=== PATIENT | female | born 1960 | race Caucasian/White ===

== ENCOUNTER 2016-12-08 03:38 | Inpatient (IN) | payer OTHER ==
[~2016-12-08] VITALS: Ht 160 cm; Wt 75.2 kg
[~2016-12-08 03:38] MED LIST: ASCO10007 PO; ASPI-496 PO; CELE200C PO; GLIP10TA3 PO; GLIP5TAB10 PO; LISI40TA PO; METF10002 PO
[2016-12-08] MEDS ORDERED: SODIUM CHLORIDE 0.9% 1,000ML IVBOLUS ONE ×2 (04:30→05:30)
[2016-12-08] MEDS ORDERED: ACETAMINOPHEN 325 MG TABLET PO ONE (04:30)
[2016-12-08] MEDS ORDERED: ACETAMINOPHEN 325 MG TABLET ONE (04:34)
[2016-12-08] MEDS ORDERED: ONDANSETRON 2MG/ML, 2ML ONE (05:20)
[2016-12-08] MEDS ORDERED: MORPHINE SULFATE 4 MG/ML, 1ML ONE (05:20)
[2016-12-08] MEDS ORDERED: MAALOX/HYOSCYAMINE/LIDOCAINE 45 ML BOTTLE ONE (05:20)
[2016-12-08] MEDS ORDERED: FAMOTIDINE 20 MG/2 ML ONE (05:21)
[2016-12-08] MEDS ORDERED: ONDANSETRON 2MG/ML, 2ML IVPush ONE (05:30)
[2016-12-08] MEDS ORDERED: MORPHINE SULFATE 4 MG/ML, 1ML IVPush PRN (05:30)
[2016-12-08] MEDS ORDERED: MAALOX/HYOSCYAMINE/LIDOCAINE 45 ML BOTTLE PO ONE (05:30)
[2016-12-08] MEDS ORDERED: FAMOTIDINE 20 MG/2 ML IVP ONE (05:30)
[2016-12-08 05:39] LABS: ASPARTATE AMINO TRANSFERASE 22 U/L (15-37); BLOOD UREA NITROGEN 23 mg/dL (7-18)
[2016-12-08 05:48] LABS: IS PT STATUS REG ER OR PRE ER? YES
[2016-12-08 06:35] LABS: HCG UR OBC PASS
[2016-12-08] MEDS ORDERED: CEFTRIAXONE PMX 1GM/50ML 50 ML ONE (07:23)
[2016-12-08] MEDS ORDERED: CEFTRIAXONE PMX 1GM/50ML 50 ML IV SCH (07:30)
[2016-12-08] MEDS ORDERED: ONDANSETRON 2MG/ML, 2ML IVPush PRN (09:00)
[2016-12-08] MEDS ORDERED: ONDANSETRON ODT 4 MG PO PRN (09:00)
[2016-12-08] MEDS ORDERED: FAMOTIDINE 20 MG TABLET PO SCH (09:00)
[2016-12-08] MEDS ORDERED: LABETALOL 5MG/ML, 20ML IVPush PRN (09:00)
[2016-12-08] MEDS: SENNA/DOCUSATE TABLET PO SCH ×3 (09:00→20:31)
[2016-12-08] MEDS ORDERED: POLYETHYLENE GLYCOL 17 GM PACKET PO PRN (09:00)
[2016-12-08 09:10] VITALS: BP 105/63
[2016-12-08] MEDS: CEFTRIAXONE PMX 1GM/50ML 50 ML IV SCH (10:34)
[2016-12-08] MEDS: ENOXAPARIN 40 MG/0.4 ML SQ SCH (10:34)
[2016-12-08] MEDS: SODIUM CHLORIDE 0.9% 1,000 ML IV SCH ×2 (10:34→22:08)
[2016-12-08 14:02] VITALS: BP 91/56
[2016-12-08 20:03] VITALS: BP 109/67
[2016-12-08] MEDS: HYDROcodone/APAP 5/325 TABLET PO PRN (20:31)
[2016-12-09] MEDS: SODIUM CHLORIDE 0.9% 1,000 ML IV SCH ×3 (00:45→16:03)
[2016-12-09 02:00] VITALS: BP 125/74
[2016-12-09 04:40] LABS: BLOOD UREA NITROGEN 11 mg/dL (7-18)
[2016-12-09 04:45] LABS: ASPARTATE AMINO TRANSFERASE 17 U/L (15-37)
[2016-12-09] MEDS: CEFTRIAXONE PMX 1GM/50ML 50 ML IV SCH (07:34)
[2016-12-09] MEDS: ENOXAPARIN 40 MG/0.4 ML SQ SCH (07:34)
[2016-12-09] MEDS: FAMOTIDINE 20 MG TABLET PO SCH (07:34)
[2016-12-09 08:06] VITALS: BP 119/70
[2016-12-09 13:57] VITALS: BP 101/56
[2016-12-09] MEDS: GUAIFENESIN 200 MG TABLET PO SCH ×2 (18:10→20:29)
[2016-12-09 19:53] VITALS: BP 126/74
[2016-12-09] MEDS: DOXYCYCLINE 100MG TABLET PO SCH (20:30)
[2016-12-09] MEDS: metFORMIN 500 MG TABLET PO SCH (20:30)
[2016-12-09] MEDS: HYDROcodone/APAP 5/325 TABLET PO PRN (21:53)
[2016-12-10] MEDS: SODIUM CHLORIDE 0.9% 1,000 ML IV SCH (00:30)
[2016-12-10 01:47] VITALS: BP 130/72
[2016-12-10] MEDS: HYDROcodone/APAP 5/325 TABLET PO PRN ×3 (04:34→22:35)
[2016-12-10 05:20] LABS: BLOOD UREA NITROGEN 11 mg/dL (7-18)
[2016-12-10] MEDS: GUAIFENESIN 200 MG TABLET PO SCH ×4 (05:24→20:14)
[2016-12-10 05:26] LABS: ASPARTATE AMINO TRANSFERASE 16 U/L (15-37)
[2016-12-10 08:52] VITALS: BP 145/85
[2016-12-10] MEDS: CEFTRIAXONE PMX 1GM/50ML 50 ML IV SCH (09:04)
[2016-12-10] MEDS: metFORMIN 500 MG TABLET PO SCH ×2 (09:04→20:13)
[2016-12-10] MEDS: DOXYCYCLINE 100MG TABLET PO SCH ×2 (09:04→20:13)
[2016-12-10] MEDS: SENNA/DOCUSATE TABLET PO SCH (09:05)
[2016-12-10] MEDS: FAMOTIDINE 20 MG TABLET PO SCH (09:05)
[2016-12-10] MEDS: ENOXAPARIN 40 MG/0.4 ML SQ SCH (09:05)
[2016-12-10 13:33] VITALS: BP 116/71
[2016-12-10 20:59] VITALS: BP 137/79
[2016-12-11 02:45] VITALS: BP 128/68
[2016-12-11 05:16] VITALS: BP 154/83
[2016-12-11] MEDS: CEFTRIAXONE PMX 1GM/50ML 50 ML IV SCH (05:28)
[2016-12-11 05:33] LABS: BLOOD UREA NITROGEN 14 mg/dL (7-18)
[2016-12-11] MEDS: GUAIFENESIN 200 MG TABLET PO SCH ×2 (06:00→12:03)
[2016-12-11] MEDS: FAMOTIDINE 20 MG TABLET PO SCH (06:29)
[2016-12-11 08:15] VITALS: BP 157/83
[2016-12-11] MEDS: DOXYCYCLINE 100MG TABLET PO SCH (08:46)
[2016-12-11] MEDS: metFORMIN 500 MG TABLET PO SCH (08:46)
[2016-12-11] MEDS: ENOXAPARIN 40 MG/0.4 ML SQ SCH (08:46)
[2016-12-11] MEDS: SENNA/DOCUSATE TABLET PO SCH (08:46)
[2016-12-11] MEDS ORDERED: AMOX1TAB64 PO (11:08)
[2016-12-11 12:04] VITALS: BP 154/82
== END 2016-12-11 12:10 | disposition home or self-care (01) | DRG 871 ==
LOC: ED 06:10 → EDIP 07:40 → 3NW 09:03
PROVIDERS: ADMIT Hospitalist; ATTEND Hospitalist
DX: A41.9 Sepsis, unspecified organism (principal); N17.0 Acute kidney failure with tubular necrosis; N10 Acute pyelonephritis; D64.9 Anemia, unspecified; E11.22 Type 2 diabetes mellitus with diabetic chronic kidney disease; E78.5 Hyperlipidemia, unspecified; J02.9 Acute pharyngitis, unspecified; B96.20 Unspecified Escherichia coli [E. coli] as the cause of diseases classified elsewhere; I12.9 Hypertensive chronic kidney disease with stage 1 through stage 4 chronic kidney disease, or unspecified chronic kidney disease; K59.00 Constipation, unspecified; N18.9 Chronic kidney disease, unspecified; E11.65 Type 2 diabetes mellitus with hyperglycemia; Z60.2 Problems related to living alone; Z82.49 Family history of ischemic heart disease and other diseases of the circulatory system; Z83.3 Family history of diabetes mellitus
CPT/HCPCS: 36415; 71010; 74020; 76700; 80048; 80053; 81001; 81025; 82040; 82436; 82570; 82962; 83036; 83605; 83690; 83735; 84133; 84145; 84300; 84439; 84443; 84484; 85025; 87040; 87077; 87086; 87186; 87324; 89055; 93005; 96361; 96365; 96375; J0696; J1650; J2405; J7030; S0028